=== PATIENT | female | born 1965 | race Caucasian/White ===

== ENCOUNTER 2020-08-24 15:11 | Outpatient (CLI) | payer OTHER, SELFPAY ==
--- NOTE | ~2020-08-24 | MM_ITS ---
EXAMINATION: MM screening royce BI w madisyn HISTORY: Screening TECHNIQUE: Craniocaudal and mediolateral oblique 3-D tomosynthesis images were obtained and synthetic 2-D images were generated. CAD analysis was submitted and interpreted. COMPARISON: Comparison to multiple prior studies sequentially, with oldest reviewed study dated 10/11. BREAST PARENCHYMAL COMPOSITION: There are scattered areas of fibroglandular density. FINDINGS: There is no evidence of suspicious mass, calcification, or architectural distortion to sugg est malignancy in either breast. There has been no suspicious interval change. IMPRESSION: 1. No mammographic evidence of malignancy. 2. Recommend routine screening mammography in one year. BI-RADS Category 1: Negative Reviewed, dictated and finalized at location A.
== END 2020-08-24 15:12 | disposition home or self-care (01) ==
LOC: ANHIMG 15:16
PROVIDERS: PCP Family Medicine; Visit Provider Obstetrics & Gynecology
DX: Z12.31 Encounter for screening mammogram for malignant neoplasm of breast (principal)
CPT/HCPCS: 77063; 77067

== ENCOUNTER 2021-12-03 13:39 | Outpatient (CLI) | payer OTHER, SELFPAY ==
--- NOTE | ~2021-12-03 | CT_ITS ---
EXAMINATION: CT abdomen pelvis wo con DATE: 12/03/2021 13:57 INDICATION: Right lower quadrant abdominal pain TECHNIQUE: Computed tomography (CT) of the abdomen and pelvis was performed without intravenous contr ast. Automated exposure control and iterative reconstruction technique were employed. Exam dose: 505 .41 mGy-cm total exam DLP. COMPARISON: 04/10/2012 CT abdomen pelvis FINDINGS: Minimal discoid atelectasis or scarring at the lung bases. Normal heart size. There is trace pericardial fluid. There is hepatic steatosis. There is an ill-defined approximately 2 cm area of relatively diminished attenuation of the posterior medial segment of the left hepatic lobe; differential diagnosis includes focal area of greater fat i nfiltration versus hepatic mass lesion. Further CT abdomen evaluation with IV contrast material or MR I examination is recommended. Normal splenic size. No pancreatic mass lesion, calcification or ductal dilatation. No bile duct dila tation. The gallbladder is present. No pericholecystic fluid or fat stranding. Normal morphology of the adrenal glands. Very small exophytic upper pole right renal cyst; the kidneys are otherwise unremarkable. No ureteral calculus or hydroureteronephrosis. The urinary bladder is unremarkable. Prostate calcifications. Normal caliber of the abdominal aorta. No intraperitoneal or retroperitoneal or pelvic mass lesion or adenopathy or ascites. No evidence of appendicitis. Diverticulosis of the left colon; no CT evidence of diverticulitis. Ther e is a prominent of fecal material in the transverse and right colon. No bowel obstruction, bowel wal l thickening, pneumatosis or intraperitoneal free air. Grade 2 anterolisthesis and prominent degenerative disc disease at L5-S1. No suspicious osteolytic or osteoblastic lesions are noted. IMPRESSION: Hepatic steatosis Focal approximately 2 cm ill-defined area of diminished attenuation at the posterior medial segment l eft hepatic lobe, which may represent focal increased fatty infiltration versus hepatic mass lesion. Further evaluation is recommended by CT examination with IV contrast material or MR examination Diverticulosis of the left colon; no CT evidence of diverticulitis Reviewed, dictated and finalized at Location A. Reviewed, dictated and finalized at location A. K CARRIER IMPRESSION: Hepatic steatosis Focal approximately 2 cm ill-defined area of diminished attenuation at the post erior medial segment left hepatic lobe, which may represent focal increased fat ty infiltration versus hepatic mass lesion. Further evaluation is recommended b y CT examination with IV contrast material or MR examination Diverticulosis of the left colon; no CT evidence of diverticulitis
== END 2021-12-03 13:40 | disposition home or self-care (01) ==
LOC: ANHIMG 13:43
PROVIDERS: PCP Family Medicine; Visit Provider Surgery
DX: R10.31 Right lower quadrant pain (principal); K43.2 Incisional hernia without obstruction or gangrene; K76.0 Fatty (change of) liver, not elsewhere classified; K57.30 Diverticulosis of large intestine without perforation or abscess without bleeding
CPT/HCPCS: 74176

== ENCOUNTER 2022-01-20 07:42 | Outpatient (CLI) | payer OTHER, SELFPAY ==
--- NOTE | ~2022-01-20 | MR_ITS ---
EXAMINATION: MR abdomen wo/w con DATE: 01/20/2022 08:59 INDICATION: Hepatomegaly, not elsewhere classified. TECHNIQUE: Magnetic resonance imaging (MRI) of the abdomen was performed without and with 14 mL Multi Addis intravenous contrast. Sequences included coronal T2-weighted FS FSE, coronal and axial FS FIEST A, axial T2-weighted FSE, coronal LAVA-flex, axial STIR FSE, axial DWI, axial dual-echo T1-weighted F SPGR, and axial LAVA. Postcontrast sequences included coronal LAVA-flex and a time course of axial LA VA. COMPARISON: CT abdomen and pelvis 12/03/2021, 01/29/12 FINDINGS: There is heterogeneous diffuse hepatic steatosis. In segment V of the liver, there is a 1.9 cm arteri ally hyperenhancing mass. No washout. The gallbladder, spleen, and adrenal glands are normal. Pancrea s divisum is noted. There are cysts in right kidney measuring up to 7 mm. Left kidney is normal. Ther e are no dilated loops of bowel. There are no pathologically enlarged lymph nodes. There is no free i ntraperitoneal fluid. IMPRESSION: 1. 1.9 cm arterially hyperenhancing liver mass. In the absence of known malignancy or chronic liver d isease, this finding is most likely focal nodular hyperplasia. 2. Heterogeneous hepatic steatosis. Reviewed, dictated and finalized at location A. IMPRESSION: 1. 1.9 cm arterially hyperenhancing liver mass. In the absence of known maligna ncy or chronic liver disease, this finding is most likely focal nodular hyperpl ignacia. 2. Heterogeneous hepatic steatosis.
[2022-01-20 08:33] LABS: Estimated Glomerular Filt Rate > 60
== END 2022-01-20 07:43 | disposition home or self-care (01) ==
LOC: ANHIMG 07:46
PROVIDERS: PCP Family Medicine; Visit Provider Family Medicine
DX: R16.0 Hepatomegaly, not elsewhere classified (principal)
CPT/HCPCS: 74183; A9577

== ENCOUNTER 2022-05-10 00:38 | Day surgery (SDC) | payer OTHER, SELFPAY ==
[2022-04-29 10:46] VITALS: BMI 30.9
[2022-05-10 08:13] VITALS: BP 134/73; PULSE 94; RESP 16; TEMP 36.1; O2SAT 97; BMI 29.2
[2022-05-10] MEDS: LACTATED RINGERS 1,000 ML 150 ML IV CONT (08:25)
[2022-05-10 08:26] LABS: Glucose Point of Care 131 mg/dl (65-105)
--- NOTE | 2022-05-10 08:41 | WPDANESEPPF ---
Anes - Initial Pre Proc Eval Procedure: Operation Date: 05/10/22 09:30 Proposed Procedures p Screening Colonoscopy - Chi Cho MD Date/Time: 05/10/22 08:41 Surgeon: Chi Cho MD Pre Op Diagnosis: neoplasm screening Patient Data Age: 56 Gender: F Height: 1.54 m Weight: 69.2 kg Last Vital Signs Temp 97 F L 05/10/22 08:13 Pulse 94 05/10/22 08:13 Resp 16 05/10/22 08:13 BP 134/73 05/10/22 08:13 Pulse Ox 97 05/10/22 08:13 O2 Del Method Room Air 05/10/22 08:13 Allergies Allergy/AdvReac Type Severity Reaction Status Date / Time No Known Allergies Allergy Verified 05/10/22 08:12 Home Medications Medication Instructions Recorded Confirmed Type aspirin 81 mg tablet,delayed 81 mg PO DAILY 03/20/20 05/10/22 History release (Enteric Coated Aspirin) atorvastatin 20 mg tablet 20 mg PO DAILY 03/20/20 05/10/22 History cholecalciferol (vitamin D3) 10 10 mcg PO DAILY 03/20/20 05/10/22 History mcg (400 unit) capsule cinnamon bark 500 mg capsule 500 mg PO DAILY 03/20/20 05/10/22 History (Cinnamon) lisinopril 40 mg tablet 40 mg PO DAILY 03/20/20 05/10/22 History metformin 500 mg tablet 500 mg PO DAILY 03/20/20 05/10/22 History omeprazole 40 mg capsule,delayed 40 mg PO DAILY 03/20/20 05/10/22 History release psyllium husk 0.4 gram capsule 0.4 gm PO ONCE 03/20/20 05/10/22 History (Daily Fiber) raloxifene 60 mg tablet (Evista) 60 mg PO DAILY 03/20/20 05/10/22 History levothyroxine 75 mcg tablet See Rx Instructions .Route 03/29/21 05/10/22 Rx (Euthyrox) .COMPLEX #90 tabs allopurinol 300 mg tablet 300 mg PO DAILY 11/12/21 05/10/22 History amlodipine 10 mg tablet 10 mg PO DAILY 11/12/21 05/10/22 History hyoscyamine sulfate 0.375 mg 0.375 mg PO Q12H 11/12/21 05/10/22 History tablet,extended release,12 hr albuterol sulfate 90 mcg/actuation 2 inh inhalation Q4H PRN shortness 04/11/22 05/10/22 Rx aerosol inhaler of breath or wheezing #8.5 grams codeine 10 mg-guaifenesin 100 mg/5 5 ml PO Q6H PRN cough #120 mL 04/11/22 05/10/22 Rx mL oral liquid (Virtussin AC) levothyroxine 75 mcg capsule 75 mcg PO DAILY #90 caps 05/09/22 05/10/22 Rx Laboratory Tests 05/10/22 08:20 POC Capillary Glucose 131 mg/dl H mg/dl (65-105) Patient hx anesthesia problems: none Family hx anesthesia problems: none Results Review: All pre-operative results and documents have been reviewed as part of the pre-operative evaluation. [facility] Past Medical History Medical History (Updated 05/10/22 @ 08:44 by Chi Cho MD) Abdominal hernia Adenomatous colon polyp BMI greater than 30 Colonoscopy planned Diabetes GERD (gastroesophageal reflux disease) High cholesterol Hypertension IBS (irritable bowel syndrome) Liver mass Low vitamin D level Nodular hyperplasia of liver KEYUR (obstructive sleep apnea) Recurrent incisional hernia Screen for colon cancer Thyroid disease Surgical History Surgical History H/O dilation and curettage H/O hernia repair H/O lumpectomy H/O: hysterectomy History of cryosurgery History of incisional hernia repair x2 History of lobectomy of thyroid History of total right knee replacement Hx of appendectomy Hx of breast reduction, elective Family History Family History (Updated 04/11/22 @ 11:15 by Hannah Sanchez CMA) Father Cerebrovascular accident, Onset Age: 38 Mother Breast cancer Hypertension COPD (chronic obstructive pulmonary disease) High cholesterol Tobacco abuse Sibling Acute myocardial infarction Sibling No problems noted. Other Depression Diabetes mellitus Heart disease Social History Social History (Updated 04/11/22 @ 11:18 by Hannah Sanchez CMA) Smoking status: Former smoker Second hand tobacco smoke exposure: No Alcohol intake: current Alcohol use details: RAREL
--- NOTE | 2022-05-10 08:43 | PM.HPGS ---
History of Present Illness History of Present Illness Consent: Risks, benefits, and alternatives have been discussed and questions answered. Patient agrees to proceed with procedure. Chief complaint: neoplasm screening Narrative: Kayla Manuel is a 56 year old female with colon polyps about 4-5 years ago Review of Systems Constitutional: Constitutional: Denies headache(s) and Denies weakness Eyes: Eyes: Denies blurry vision ENT: Reports Normal hearing present, Denies headache(s) and Denies neck pain Cardiovascular: Cardiovascular: Denies chest pain and Denies dyspnea Respiratory: Respiratory: Denies dyspnea Gastrointestinal: Gastrointestinal: Reports no additional gastrointestinal complaints Genitourinary: Genitourinary: Denies dysuria Musculoskeletal: Musculoskeletal: Denies neck pain Integumentary/Breasts: Skin/Breast: Denies dry skin Neurologic: Reports Normal hearing present, Denies headache(s) and Denies weakness Psychiatric: Psychiatric: Denies anxiety Endocrine: Endocrine: Denies change in body appearance Hematologic/Lymphatic: Hematologic/Lymphatic: Denies easy bleeding Allergic/Immunologic: Allergic/Immunologic: Denies urticaria PMFSH Past Medical History Medical History (Updated 05/10/22 @ 08:44 by Chi Cho MD) Abdominal hernia Adenomatous colon polyp BMI greater than 30 Colonoscopy planned Diabetes GERD (gastroesophageal reflux disease) High cholesterol Hypertension IBS (irritable bowel syndrome) Liver mass Low vitamin D level Nodular hyperplasia of liver KEYUR (obstructive sleep apnea) Recurrent incisional hernia Screen for colon cancer Thyroid disease Surgical History Surgical History H/O dilation and curettage H/O hernia repair H/O lumpectomy H/O: hysterectomy History of cryosurgery History of incisional hernia repair x2 History of lobectomy of thyroid History of total right knee replacement Hx of appendectomy Hx of breast reduction, elective Family History Family History (Updated 04/11/22 @ 11:15 by Hannah Sanchez CMA) Father Cerebrovascular accident, Onset Age: 38 Mother Breast cancer Hypertension COPD (chronic obstructive pulmonary disease) High cholesterol Tobacco abuse Sibling Acute myocardial infarction Sibling No problems noted. 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 Gender identity (if verbalized by the patient): Female Spiritual care concerns: No Meds Home Medications and Allergies Home Medications Medication Instructions Recorded Confirmed Type aspirin 81 mg tablet,delayed 81 mg PO DAILY 03/20/20 05/10/22 History release (Enteric Coated Aspirin) atorvastatin 20 mg tablet 20 mg PO DAILY 03/20/20 05/10/22 History cholecalciferol (vitamin D3) 10 10 mcg PO DAILY 03/20/20 05/10/22 History mcg (400 unit) capsule cinnamon bark 500 mg capsule 500 mg PO DAILY 03/20/20 05/10/22 History (Cinnamon) lisinopril 40 mg tablet 40 mg PO DAILY 03/20/20 05/10/22 History metformin 500 mg tablet 500 mg PO DAILY 03/20/20 05/10/22 History omeprazole 40 mg capsule,delayed 40 mg PO DAILY 03/20/20 05/10/22 History release psyllium husk 0.4 gram capsule 0.4 gm PO ONCE 03/20/20 05/10/22 History (Daily Fiber) raloxifene 60 mg tablet (Evista) 60 mg PO DAILY 03/20/20 05/10/22 History levothyroxine 75 mcg tablet See Rx Instructions .Route 03/29/21 05/10/22 Rx (Euthyrox) .COMPLEX #90 tabs allopurinol 300 mg tablet 300 mg PO DAILY 0
[2022-05-10 09:08] VITALS: BP 97/64; PULSE 83; RESP 13; O2SAT 97
[2022-05-10 09:18] VITALS: BP 115/66; PULSE 80; RESP 19; O2SAT 99
[2022-05-10 09:28] VITALS: BP 125/89; PULSE 78; RESP 14; O2SAT 98
== END 2022-05-10 09:39 | disposition home or self-care (01) ==
PROVIDERS: PCP Family Medicine; Visit Provider Internal Medicine Gastroenterology
PROC: 0DJD8ZZ Inspection of Lower Intestinal Tract, Via Natural or Artificial Opening Endoscopic (ICD-10-PCS; CPT 45378; principal; 2022-05-10 09:30)
DX: Z12.11 Encounter for screening for malignant neoplasm of colon (principal); K63.5 Polyp of colon; K57.30 Diverticulosis of large intestine without perforation or abscess without bleeding; E11.9 Type 2 diabetes mellitus without complications; K21.9 Gastro-esophageal reflux disease without esophagitis; E78.00 Pure hypercholesterolemia, unspecified; I10 Essential (primary) hypertension; K58.9 Irritable bowel syndrome, unspecified; R16.0 Hepatomegaly, not elsewhere classified; E55.9 Vitamin D deficiency, unspecified; G47.33 Obstructive sleep apnea (adult) (pediatric); Z87.891 Personal history of nicotine dependence; E03.9 Hypothyroidism, unspecified; Z79.82 Long term (current) use of aspirin; Z79.51 Long term (current) use of inhaled steroids; Z79.84 Long term (current) use of oral hypoglycemic drugs
CPT/HCPCS: 45380; 82948; 88305; J2001; J2704; J7120

== ENCOUNTER → 2022-06-06 12:37 | Outpatient (CLI) | payer OTHER, SELFPAY ==
--- NOTE | ~2022-06-06 | US_ITS ---
US thyroid INDICATION: Postprocedural hypothyroidism TECHNIQUE: Real-time sonographic images of the thyroid gland were obtained. COMPARISON: Ultrasound dated 01/23/2019 FINDINGS: The right thyroid lobe measures 4.1 x 1.6 x 1.1 cm. The left thyroid lobe is absent. In the right lobe superiorly there are 2 adjacent hypoechoic nodules including a 1 x 0.8 x 0.7 cm solid hyp oechoic, wider than tall, ill-defined mass without calcifications, TR 4. Also in the superior aspect of the right lobe there is an oval hypoechoic mass which is solid, wider than tall with ill-defined m argins measuring 7 x 6 x 6 mm, TR 4, stable Inferiorly in the right lobe there is an oval circumscrib ed solid hypoechoic mass measuring 1.2 x 1 x 1 cm was smooth margins, wider than tall and no echogeni c foci, TR 4. These are stable or diminished in size compared with prior examination. The left thyroi d bed is unremarkable. IMPRESSION: 1. Stable thyroid nodules. Thyroid ultrasound recommended in one year. Reviewed, dictated and finalized at location A.
== END ==
LOC: EXPGOSH 12:39 → EXPGOSHRAD 06-07 14:46
PROVIDERS: PCP Otolaryngology; Visit Provider Otolaryngology
DX: E89.0 Postprocedural hypothyroidism (principal); E04.2 Nontoxic multinodular goiter
CPT/HCPCS: 76536

== ENCOUNTER → 2022-06-14 10:18 | Outpatient (CLI) | payer OTHER, SELFPAY ==
--- NOTE | ~2022-06-14 | DEXA_ITS ---
Bone Density Report Name: ANANTH MACHADO Age: 56 Sex: Female Ethnicity: White Date of : 1965 Indication: osteopenia; monitoring treatment; inflammatory bowel disease; hysterectomy; postmenopausal Referring Provider: KATELIN, LILY Study: Bone densitometry was performed. Exam Date: June 14, 2022 Accession number: [id number] Bone Density: Region BMD T-score Z-score Classification AP Spine (L1-L4) 0.851 -1.8 -0.5 Osteopenia Femoral Neck (Left) 0.643 -1.9 -0.6 Osteopenia Total Hip (Left) 0.802 -1.1 -0.3 Osteopenia Femoral Neck (Right) 0.644 -1.8 -0.6 Osteopenia Total Hip (Right) 0.768 -1.4 -0.6 Osteopenia Total Hip Mean 0.785 -1.3 -0.5 Osteopenia World Health Organization criteria for BMD impression classify patients as: Normal (T-score at or above -1.0), Osteopenia (T-score between -1.0 and -2.5), or Osteoporosis (T-score at or below -2.5). 10-year Fracture Risk: FRAX not reported because: Treated for osteoporosis Previous Exams: Region Exam Age BMD T-score BMD Change BMD Change Date g/cm2 vs Baseline vs Previous AP Spine(L1-L4) 06/14/2022 56 0.851 -1.8 -0.097 0.054* 09/06/2015 50 0.797 -2.3 -0.151 -0.151 03/30/2004 38 0.948 -0.9 Total Hip(Left) 06/14/2022 56 0.802 -1.1 -0.111 -0.020 09/06/2015 50 0.822 -1.0 -0.091 -0.091 03/30/2004 38 0.913 -0.2 Total Hip(Right) 06/14/2022 56 0.768 -1.4 -0.114 -0.032* 09/06/2015 50 0.799 -1.2 -0.082 -0.082 03/30/2004 38 0.882 -0.5 *Denotes significance at 95% confidence level, LSC for AP Spine = 0.022 g/cm2, LSC for Total Hip = 0.027 g/cm2 Clinical Information Provided by Patient: Is being treated for osteoporosis Has used the following medications: Evista (i.e. raloxifene), Vitamin D, LEVOTHYROXINE, MTV Has the following medical conditions: Inflammatory bowel diseases, Hysterectomy Patient maximum height was 60.0 Menopause Age: 34 No regular weight bearing exercise Does not regularly consume dairy products Drinks caffeinated beverages Onset of menses at age 10 Number of children 2 Impression: The patient has low bone mass, based on the Left Femoral Neck T-score. The BMD for the Total Hip(Right) decreased, changing by -0.032 since the last DXA exam. Discussion: SIGNIFICANT BONE LOSS OBSERVED. Adherence to therapy (including calcium and vitamin D intake) sh
== END ==
PROVIDERS: PCP Family Medicine; Visit Provider Nurse Practitioner
DX: M85.88 Other specified disorders of bone density and structure, other site (principal); M85.852 Other specified disorders of bone density and structure, left thigh; M85.851 Other specified disorders of bone density and structure, right thigh
CPT/HCPCS: 77080

== ENCOUNTER 2022-07-29 07:34 | Outpatient (CLI) | payer OTHER, SELFPAY ==
--- NOTE | ~2022-07-29 | MM_ITS ---
EXAMINATION: MM screening royce BI w madisyn HISTORY: Screening mammogram, family history of breast cancer in her mother. TECHNIQUE: Craniocaudal and mediolateral oblique 3-D tomosynthesis images were obtained and synthetic 2-D images were generated. CAD analysis was submitted and interpreted. COMPARISON: 09/03/2020, 02/24/2019, 02/18/2017 BREAST PARENCHYMAL COMPOSITION: There are scattered areas of fibroglandular density. FINDINGS: There is no suspicious mass, calcification, or architectural distortion to suggest malignan cy in either breast. There has been no suspicious interval change. IMPRESSION: 1. No mammographic evidence of malignancy. 2. Recommend routine screening mammography in one year. BI-RADS Category 1: Negative Reviewed, dictated and finalized at location A.
== END 2022-07-29 07:35 | disposition home or self-care (01) ==
LOC: ANHIMG 07:36
PROVIDERS: PCP Family Medicine; Visit Provider Nurse Practitioner
DX: Z12.31 Encounter for screening mammogram for malignant neoplasm of breast (principal)
CPT/HCPCS: 77063; 77067

== ENCOUNTER 2022-10-02 13:30 | Outpatient (CLI) | payer OTHER, SELFPAY ==
--- NOTE | ~2022-10-02 | XR_ITS ---
EXAMINATION: XR chest 2V 10/02/2022 13:53 INDICATION: Bronchitis PROCEDURE: 2 view chest COMPARISON: 03/05/2013 FINDINGS: The lungs are clear. The cardiomediastinal silhouette is within normal limits. There are no pleural effusions. There is no pneumothorax suspected. IMPRESSION: 1: NO ACUTE CARDIOPULMONARY DISEASE. Reviewed, dictated and finalized at location B. FCASE SEWER
== END 2022-10-02 13:31 | disposition home or self-care (01) ==
PROVIDERS: PCP Family Medicine; Visit Provider Family Medicine
DX: J40 Bronchitis, not specified as acute or chronic (principal)
CPT/HCPCS: 71046

== ENCOUNTER 2022-10-07 07:32 | Emergency (ER) | payer OTHER, SELFPAY ==
[2022-10-07] VITALS (14 sets, daily range): BP systolic 138–165; BP diastolic 68–91; PULSE 65–91; RESP 14–18; TEMP 36.7; O2SAT 96–98
--- NOTE | ~2022-10-07 | CT_ITS ---
EXAMINATION: CT brain wo con DATE: 10/07/2022 12:03 INDICATION: Dizziness. TECHNIQUE: Computed tomography (CT) of the head was performed without intravenous contrast. The mA wa s adjusted according to patient size. Iterative reconstruction technique was employed. The dose-lengt h product was 605.33 mGy-cm. COMPARISON: None FINDINGS: There is no intracranial hemorrhage, acute infarction, or abnormal intracranial mass lesion . There are scattered areas of low attenuation in the cerebral white matter. The ventricles are meghana l in size. The orbits are normal. There is mild mucosal thickening in the paranasal sinuses. The mast oid air cells are normal. IMPRESSION: 1. Mild nonspecific cerebral white matter disease, which likely represents chronic small vessel ische negrita disease. Reviewed, dictated and finalized at location A. T FUEL ENGINEER IMPRESSION: 1. Mild nonspecific cerebral white matter disease, which likely represents pet food deboner alexander small vessel ischemic disease.
--- NOTE | 2022-10-07 07:54 | ECG_ITS ---
Measurements Intervals [place] Rate: 72 P: 3 CA: 148 QRS: 45 QRSD: 96 T: 84 QT: 407 QTc: 447 Interpretive Statements SINUS RHYTHM DELAYED PRECORDIAL R/S TRANSITION CONSIDER INFERIOR INFARCT, AGE INDETERMINATE BORDERLINE T WAVE ABNORMALITY- HIGH LATERAL LEADS ABNORMAL ECG NO PREVIOUS ECG AVAILABLE FOR COMPARISON Electronically Signed On 10-07-2022 10:49:30 FRONT END SPECIALIST by Mason Ybarra D.O.
[2022-10-07 08:13] LABS: Basophils Percent Auto 0.5 % (0.2-1.2); Eosinophils Absolute Auto 0.2 K/mm3 (0-0.3); Eosinophils Percent Auto 2.3 % (0-4.4); Hemoglobin 13.3 g/dL (12.0-15.0); Immature Granulocyte Absolute 0.03 K/mm3 (0.00-0.031); Immature Granulocyte Percent A 0.3 % (0-0.5); Lymphocytes Absolute Auto 2.73 K/mm3 (0.9-3.2); Lymphocytes Percent Auto 31.3 % (18.3-44.2); Mean Corpuscular HGB Conc 34.1 g/dl (32-36); Mean Corpuscular Hemoglobin 30.1 pg (26-34); Mean Corpuscular Volume 88.2 fl (80-100); Monocytes Absolute Auto 0.3 K/mm3 (0.1-0.6); Monocytes Percent Auto 3.3 % (2.6-8.5); Neutrophils Absolute Auto 5.4 K/mm3 (1.3-6.7); Neutrophils Percent Auto 62.3 % (45.5-73.1); Platelet Count Result 315 k/mm3 (150-375); Red Blood Count 4.42 M/mm3 (4.2-5.4); Red Cell Distribution Width 14.1 % (11.5-14.5); White Blood Count 8.7 K/mm3 (4.5-10.0)
[2022-10-07 08:24] LABS: Alanine Aminotransferase 33 U/L (6-35); Albumin Level 4.6 g/dL (3.5-5.1); Alkaline Phosphatase 62 U/L (38-126); Anion Gap 15 mmol/L (8-16); Aspartate Amino Transferase 31 U/L (14-36); Bilirubin,Total 0.6 mg/dL (0.2-1.3); Blood Urea Nitrogen 8 mg/dL (7-17); Calcium 8.6 mg/dL (8.4-10.2); Carbon Dioxide 26 mmol/L (22-30); Chloride 101 mmol/L (98-107); Estimated CRCL calculation 74 ml/min; Estimated Glomerular Filt Rate > 60; Glucose 124 mg/dL (65-110); Potassium 3.3 mmol/L (3.4-5.0); Sodium 142 mmol/L (137-145)
[2022-10-07 08:50] LABS: Influenza A QL RT-PCR Positive (Negative); Influenza B QL RT-PCR Negative (Negative); SARS-CoV-2 RNA PCR Negative
--- NOTE | 2022-10-07 11:38 | ED.DIZZY ---
HPI - Dizziness General Chief Complaint: Dizziness Stated Complaint: bp high, dizziness Time Seen by Provider: 10/07/22 11:27 Source: patient Mode of arrival: ambulatory Limitations: no limitations History of Present Illness HPI Narrative: This is a 57-year-old female that presents to the emergency department for dizziness ongoing since yesterday. Reports she rolled over in bed and noted that she felt like the room was spinning. Reports she has been having episodes intermittently since yesterday. No previous history of vertigo. Reports she has been having ongoing cold symptoms over the last couple of weeks. Reports cough, congestion, and sore throat. She recently finished a Z-Rohit for bronchitis. Denies fever, visual changes, vomiting, numbness, or weakness. Related Data Home Medications Medication Instructions Recorded Confirmed aspirin 81 mg tablet,delayed 81 mg PO DAILY 03/20/20 06/04/22 release (Enteric Coated Aspirin) cholecalciferol (vitamin D3) 10 10 mcg PO DAILY 03/20/20 06/04/22 mcg (400 unit) capsule cinnamon bark 500 mg capsule 500 mg PO DAILY 03/20/20 06/04/22 (Cinnamon) psyllium husk 0.4 gram capsule 0.4 gm PO ONCE 03/20/20 06/04/22 (Daily Fiber) raloxifene 60 mg tablet (Evista) 60 mg PO DAILY 03/20/20 06/04/22 allopurinol 300 mg tablet 300 mg PO DAILY 11/12/21 06/04/22 amlodipine 10 mg tablet 10 mg PO DAILY 11/12/21 06/04/22 Allergies Allergy/AdvReac Type Severity Reaction Status Date / Time No Known Allergies Allergy Verified 10/07/22 11:21 Review of Systems Review of Systems: CONSTITUTIONAL: Denies fever EYES: Denies visual changes ENT: Reports rhinorrhea, congestion, sore throat CARDIOVASCULAR: Denies chest pain RESPIRATORY: Reports cough. Denies dyspnea. GASTROINTESTINAL: Denies abdominal pain, nausea, vomiting GENITOURINARY: Denies dysuria NEUROLOGIC: Denies numbness, or weakness. All systems reviewed & are unremarkable except as noted in HPI and below PMFSH Past Medical History Medical History Abdominal hernia Adenomatous colon polyp BMI greater than 30 Colonoscopy planned Diabetes GERD (gastroesophageal reflux disease) High cholesterol Hypertension IBS (irritable bowel syndrome) Liver mass Low vitamin D level Nodular hyperplasia of liver KEYUR (obstructive sleep apnea) Recurrent incisional hernia Screen for colon cancer Thyroid disease Surgical History Surgical History H/O dilation and curettage H/O hernia repair H/O lumpectomy H/O: hysterectomy History of cryosurgery History of incisional hernia repair x2 History of lobectomy of thyroid History of total right knee replacement Hx of appendectomy Hx of breast reduction, elective Family History Family History Father Cerebrovascular accident, Onset Age: 38 Mother Breast cancer Hypertension COPD (chronic obstructive pulmonary disease) High cholesterol Tobacco abuse Sibling Acute myocardial infarction Sibling No problems noted. 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 Gender identity (if verbalized by the patient): Female Spiritual care concerns: No Exam Narrative: GENERAL: Well-appearing, well-nourished, and in no acute distress. HEAD: Normocephalic, atraumatic. EYES: PERRLA and EOMI. ENT: Nares clear, no rhinorrhea or epistaxis. Mucous membranes moist. Oropharynx without tonsillar hypertrophy exudate or other le
[2022-10-07] MEDS: SODIUM CHLORIDE 0.9% IV 1,000 ML 999 ML IV CONT (11:39)
[2022-10-07] MEDS: MECLIZINE HCL 25 MG TABLET PO (11:40)
[2022-10-07] MEDS: ONDANSETRON INJ 4 MG/2 ML VIAL IV PUSH (11:40)
[2022-10-07 11:44] LABS: Magnesium 1.5 mg/dL (1.6-2.3)
[2022-10-07] MEDS: POTASSIUM CHLORIDE 20 MEQ PACKET (FOR LIQUID) 40 MEQ PO (11:46)
[2022-10-07] MEDS: MAGNESIUM CHLORIDE 64 MG TABLET PO (12:15)
== END 2022-10-07 16:00 | disposition home or self-care (01) ==
PROVIDERS: Family Medicine; Emergency Provider Physician Assistant; PCP Family Medicine
DX: J10.1 Influenza due to other identified influenza virus with other respiratory manifestations (principal); R42 Dizziness and giddiness; Z20.822 Contact with and (suspected) exposure to COVID-19; E11.9 Type 2 diabetes mellitus without complications; I10 Essential (primary) hypertension; E78.00 Pure hypercholesterolemia, unspecified; E89.0 Postprocedural hypothyroidism; K58.9 Irritable bowel syndrome, unspecified; G47.33 Obstructive sleep apnea (adult) (pediatric); Z86.010 Personal history of colon polyps; Z79.82 Long term (current) use of aspirin; Z90.710 Acquired absence of both cervix and uterus; Z96.651 Presence of right artificial knee joint; Z87.891 Personal history of nicotine dependence; R90.82 White matter disease, unspecified; Z79.84 Long term (current) use of oral hypoglycemic drugs
CPT/HCPCS: 36415; 70450; 80053; 83735; 85025; 87636; 93005; 96361; 96374; 99284; A9270; J2405; J7030

== ENCOUNTER 2022-12-15 12:56 | Emergency (ER) | payer OTHER, SELFPAY ==
--- NOTE | ~2022-12-15 | CT_ITS ---
CT Abdomen and Pelvis with contrast. History: Abdominal pain. Spiral CT of the abdomen and pelvis was performed after the administration of intravenous contrast. 1 00 cc of Omnipaque 350 was administered intravenously without complication. Dose reduction technique was used on this scan by utilizing automated exposure control and iterative reconstruction technique. The dose-length product (DLP) was 458.49 mGy-cm. COMPARISON: 12/03/2021 Findings: Scans through the lung bases demonstrate mild atelectatic change. The liver, spleen, pancreas, gallbladder, adrenals and kidneys are within normal limits. No evidence of aortic aneurysm. No lymphadenopathy is seen. There is no evidence of bowel obstruction. Questionable mild wall thickening of small bowel loops fermin vladimir underdistention. No abscess or free air. Images through the pelvis were performed. Urinary bladder unremarkable. No pelvic mass evident. No as cites is seen. Impression: . Questionable infectious/inflammatory small bowel enteritis versus underdistention. No other significant findings. Reviewed, dictated and finalized at [facility]. EDICAL EQUIPMENT SUPPORT SPECIALIST Impression: . Questionable infectious/inflammatory small bowel enteritis versus underdisten tion. No other significant findings.
[2022-12-15 12:57] VITALS: BP 130/76; PULSE 102; RESP 18; TEMP 36.4; O2SAT 95
[2022-12-15 14:21] LABS: Basophils Percent Auto 0.4 % (0.2-1.2); Eosinophils Absolute Auto 0.1 K/mm3 (0-0.3); Hematocrit 38.4 % (37.0-47.0); Hemoglobin 12.9 g/dL (12.0-15.0); Immature Granulocyte Absolute 0.03 K/mm3 (0.00-0.031); Immature Granulocyte Percent A 0.3 % (0-0.5); Lymphocytes Percent Auto 18.8 % (18.3-44.2); Mean Corpuscular HGB Conc 33.6 g/dl (32-36); Mean Corpuscular Hemoglobin 29.8 pg (26-34); Mean Corpuscular Volume 88.7 fl (80-100); Mean Platelet Volume 8.8 fl (7.4-10.4); Monocytes Absolute Auto 0.6 K/mm3 (0.1-0.6); Neutrophils Absolute Auto 8.4 K/mm3 (1.3-6.7); Neutrophils Percent Auto 74.5 % (45.5-73.1); Platelet Count Result 344 k/mm3 (150-375); Red Blood Count 4.33 M/mm3 (4.2-5.4); Red Cell Distribution Width 13.9 % (11.5-14.5); White Blood Count 11.2 K/mm3 (4.5-10.0)
[2022-12-15 14:25] LABS: Appearance Urine Clear (Clear); Bilirubin Urine Negative (Negative); Blood Urine Trace-intact (Negative); Color Urine Yellow (Yellow); Glucose Urine UA Negative (Negative); Ketones Urine Negative (Negative); Leukocyte Esterase Ur Negative LEU/UL (Negative); Nitrate Urine Negative (Negative); Protein Urine Negative (Negative); Urobilinogen Urine 0.2 mg/dL (<2.0)
[2022-12-15 14:30] LABS: Bacteria Urine Trace /hpf; Mucus Urine Rare /lpf; RBC Urine 0-2 /hpf (0-2); Squamous Epithelial Cell Urine Occasional /hpf (Few); WBC Urine 0-3 /hpf
[2022-12-15 14:31] LABS: Add Urine Microscopic? YES
[2022-12-15 14:35] LABS: Alanine Aminotransferase 43 U/L (6-35); Albumin Level 4.7 g/dL (3.5-5.1); Alkaline Phosphatase 66 U/L (38-126); Anion Gap 7 mmol/L (8-16); Aspartate Amino Transferase 31 U/L (14-36); Bilirubin,Total 0.8 mg/dL (0.2-1.3); Blood Urea Nitrogen 9 mg/dL (7-17); Calcium 8.4 mg/dL (8.4-10.2); Carbon Dioxide 27 mmol/L (22-30); Chloride 104 mmol/L (98-107); Estimated Glomerular Filt Rate > 60; Glucose 102 mg/dL (65-110); Lipase 67 U/L (23-300); Potassium 3.4 mmol/L (3.4-5.0); Sodium 138 mmol/L (137-145)
[2022-12-15 15:34] VITALS: BP 129/75; PULSE 98; RESP 20; TEMP 36.6; O2SAT 96
--- NOTE | 2022-12-15 15:35 | ED.ABDPAIN ---
HPI - Abdominal Pain General Chief Complaint: Abdominal Pain Stated Complaint: severe abd pain Time Seen by Provider: 12/15/22 15:24 Source: patient and RN notes reviewed Mode of arrival: ambulatory Limitations: no limitations History of Present Illness HPI narrative: This is a 57 year old female with history of IBS who presents for evaluation of abdominal pain and diarrhea. She reports having diarrhea since Friday. She states her diarrhea improved until Friday. She states last night she had multiple episodes of watery, nonbloody diarrhea. She was up every 2 hours last night. She has associated nausea and today she developed lower abdominal pain. She describes pain as band going across her lower abdomen. She denies fever, chills or urinary symptoms. She took hyoscyamaine at 11 am without improvement of her pain. She reports history of IBS with diarrhea but she denies having abdominal pain. Related Data Home Medications Medication Instructions Recorded Confirmed aspirin 81 mg tablet,delayed 81 mg PO DAILY 03/20/20 06/04/22 release (Enteric Coated Aspirin) cholecalciferol (vitamin D3) 10 10 mcg PO DAILY 03/20/20 06/04/22 mcg (400 unit) capsule cinnamon bark 500 mg capsule 500 mg PO DAILY 03/20/20 06/04/22 (Cinnamon) psyllium husk 0.4 gram capsule 0.4 gm PO ONCE 03/20/20 06/04/22 (Daily Fiber) raloxifene 60 mg tablet (Evista) 60 mg PO DAILY 03/20/20 06/04/22 allopurinol 300 mg tablet 300 mg PO DAILY 11/12/21 06/04/22 amlodipine 10 mg tablet 10 mg PO DAILY 11/12/21 06/04/22 Allergies Allergy/AdvReac Type Severity Reaction Status Date / Time No Known Allergies Allergy Verified 12/15/22 15:37 Review of Systems Constitutional: Constitutional: Denies weakness Cardiovascular: Cardiovascular: Denies syncope, Denies rapid heart rate, Denies irregular heart rhythm, Denies leg edema and Denies dyspnea Respiratory: Respiratory: Denies chest congestion, Denies hemoptysis, Denies excessive phlegm production and Denies dyspnea Gastrointestinal: Gastrointestinal: Reports abdominal pain, Denies hematochezia, Reports diarrhea, Reports nausea and Denies vomiting Genitourinary: Genitourinary: Denies hematuria and Denies dysuria Musculoskeletal: Musculoskeletal: Denies joint swelling, Denies loss of height and Denies muscle weakness Neurologic: Denies syncope, Denies focal weakness and Denies weakness PMFSH Past Medical History Medical History Abdominal hernia Adenomatous colon polyp BMI greater than 30 Colonoscopy planned Diabetes GERD (gastroesophageal reflux disease) High cholesterol Hypertension IBS (irritable bowel syndrome) Liver mass Low vitamin D level Nodular hyperplasia of liver KEYUR (obstructive sleep apnea) Recurrent incisional hernia Screen for colon cancer Thyroid disease Surgical History Surgical History H/O dilation and curettage H/O hernia repair H/O lumpectomy H/O: hysterectomy History of cryosurgery History of incisional hernia repair x2 History of lobectomy of thyroid History of total right knee replacement Hx of appendectomy Hx of breast reduction, elective Family History Family History Father Cerebrovascular accident, Onset Age: 38 Mother Breast cancer Hypertension COPD (chronic obstructive pulmonary disease) High cholesterol Tobacco abuse Sibling Acute myocardial infarction Sibling No problems noted. Other Depression Diabetes mellitus Heart disease Social History Social History Smoking status: Former smoker Second hand tobacco smoke exposure: No Alcohol intake: current Alcohol use details: RARELY Substance use: never Substance use type: does not use Living arrangements: with family Occupa
[2022-12-15 15:38] VITALS: BP 129/75; PULSE 98; RESP 20; O2SAT 96
[2022-12-15] MEDS: ONDANSETRON INJ 4 MG/2 ML VIAL IV PUSH (16:00)
[2022-12-15] MEDS: MORPHINE SULFATE (*CRX) 4 MG/ML INJ IV PUSH (16:00)
[2022-12-15] MEDS: SODIUM CHLORIDE 0.9% IV 1,000 ML 999 ML IV CONT (16:01)
[2022-12-15 17:20] VITALS: BP 94/52; PULSE 85; RESP 18; O2SAT 96
[2022-12-15 17:55] VITALS: BP 94/56; PULSE 88; RESP 18; O2SAT 95
== END 2022-12-15 17:55 | disposition home or self-care (01) ==
PROVIDERS: Emergency Medicine; Emergency Provider General Practice; PCP Family Medicine
DX: R19.7 Diarrhea, unspecified (principal); E86.0 Dehydration; R10.31 Right lower quadrant pain; R10.32 Left lower quadrant pain; E78.00 Pure hypercholesterolemia, unspecified; I10 Essential (primary) hypertension; K21.9 Gastro-esophageal reflux disease without esophagitis; E89.0 Postprocedural hypothyroidism; G47.33 Obstructive sleep apnea (adult) (pediatric); Z90.710 Acquired absence of both cervix and uterus; Z96.651 Presence of right artificial knee joint; Z87.891 Personal history of nicotine dependence; Z86.010 Personal history of colon polyps; Z79.84 Long term (current) use of oral hypoglycemic drugs; Z79.82 Long term (current) use of aspirin
CPT/HCPCS: 36415; 74177; 80053; 81001; 83690; 85025; 96361; 96374; 96375; 99284; J2270; J2405; J7030; Q9967

== ENCOUNTER → 2023-10-06 16:11 | Outpatient (CLI) | payer OTHER, SELFPAY ==
--- NOTE | ~2023-10-06 | MM_ITS ---
EXAMINATION: MM screening royce BI w madisyn HISTORY: Screening mammogram TECHNIQUE: Craniocaudal and mediolateral oblique 3-D tomosynthesis images were obtained and synthetic 2-D images were generated. CAD analysis was submitted and interpreted. COMPARISON: 07/29/2022, 08/24/2020, 02/24/2019 bilateral screening mammogram examinations BREAST PARENCHYMAL COMPOSITION: There are scattered areas of fibroglandular density. FINDINGS: There is no evidence of suspicious mass, calcification, or architectural distortion to sugg est malignancy in either breast. There has been no suspicious interval change. IMPRESSION: 1. No mammographic evidence of malignancy. 2. Recommend routine screening mammography in one year. BI-RADS Category 1: Negative Reviewed, dictated and finalized at location A. PLACEMENT SPECIALIST
== END ==
PROVIDERS: PCP Family Medicine; Visit Provider Nurse Practitioner
DX: Z12.31 Encounter for screening mammogram for malignant neoplasm of breast (principal)
CPT/HCPCS: 77063; 77067

== ENCOUNTER 2024-10-08 10:39 | Outpatient (CLI) | payer OTHER, SELFPAY ==
--- NOTE | ~2024-10-08 | MM_ITS ---
EXAMINATION: MM screening royce BI w madisyn HISTORY: Screening mammogram TECHNIQUE: Craniocaudal and mediolateral oblique 3-D tomosynthesis images were obtained and synthetic 2-D images were generated. CAD analysis was submitted and interpreted. COMPARISON: 10/06/2023, 07/29/2022 bilateral screening mammogram examinations BREAST PARENCHYMAL COMPOSITION: The breasts are almost entirely fatty. FINDINGS: There is no evidence of suspicious mass, calcification, or architectural distortion to sugg est malignancy in either breast. There has been no suspicious interval change. IMPRESSION: 1. No mammographic evidence of malignancy. 2. Recommend routine screening mammography in one year. BI-RADS Category 1: Negative Reviewed, dictated and finalized at location A. SON WORKER
== END 2024-10-08 10:40 | disposition home or self-care (01) ==
LOC: MICIMG 10:40
PROVIDERS: PCP Nurse Practitioner; Visit Provider Nurse Practitioner
DX: Z12.31 Encounter for screening mammogram for malignant neoplasm of breast (principal); M85.88 Other specified disorders of bone density and structure, other site
CPT/HCPCS: 77063; 77067

== ENCOUNTER 2024-10-27 13:09 | Outpatient (CLI) | payer OTHER, SELFPAY ==
--- NOTE | ~2024-10-27 | DEXA_ITS ---
Bone Density Report Name: ANANTH MACHADO Age: 59 Sex: Female Ethnicity: White Date of : 1965 Indication: postmenopausal; screening for osteoporosis; inflammatory bowel disease; hysterectomy; Referring Provider: KATELIN, LILY Study: Bone densitometry was performed. Exam Date: October 27, 2024 Accession number: [id number] Bone Density: Region BMD T-score Z-score Classification AP Spine(L1-L4) 0.811 -2.1 -0.7 Osteopenia Femoral Neck (Left) 0.632 -2.0 -0.6 Osteopenia Total Hip (Left) 0.865 -0.6 0.4 Normal Femoral Neck (Right) 0.629 -2.0 -0.6 Osteopenia Total Hip (Right) 0.782 -1.3 -0.3 Osteopenia Total Hip Mean 0.824 -1.0 0.1 Normal World Health Organization criteria for BMD impression classify patients as: Normal (T-score at or above -1.0), Osteopenia (T-score between -1.0 and -2.5), or Osteoporosis (T-score at or below -2.5). 10-year Fracture Risk(1): Major Osteoporotic Fracture 9.1% Hip Fracture 1.1% Reported Risk Factors: [place] (), Neck BMD=0.632, BMI=32.0 (1) FRAX(R) Version 3.08. Fracture probability calculated for an untreated patient. Fracture probability may be lower if the patient has received treatment. Clinical Information Provided by Patient: Has used the following medications: Vitamin D, Calcium Has the following medical conditions: Inflammatory bowel diseases, Hysterectomy Patient maximum height was 60.0 No regular weight bearing exercise Does not regularly consume dairy products Onset of menses at age 10 Number of children 2 Impression: The patient has low bone mass, based on the Total Spine T-score. The patient has an estimated ten-year risk of hip fracture of 1.1% and an estimated ten-year risk of major fracture of 9.1%, based on the WHO FRAX algorithm. Discussion: BONE DENSITY IS LOW AT ONE OR MORE SKELETAL SITES. This patient's lowest T-score is low at one or more skeletal sites. It meets the World Health Organization's (WHO) criteria for ?low bone mass? (T-score between -1.0 and -2.5). The patient's 10-year risk of fracture as calculated by FRAX is less than the threshold where pharmacological therapy is recommended by the National Osteoporosis Foundation (NOF). However, all treatment decisions require clinical judgment and consideration of individual patient factors, including patient preferences, comorbidities, previous drug use, risk factors not captured in the FRAX model (e.g., frailty, falls, vitamin D deficiency, increased bone turnover, interval significant decline in bone density) and possible under or overestimation of fracture risk by FRAX. The patient should follow a healthful lifestyle (good nutrition with adequate calcium and vitamin D, and appropriate weight-bearing exercise). Follow-Up: Consider repeating this study in 2 to 3 years to reassess this patient's status, or sooner if there is some new clinical indication. Reported by: ROSA on 10/27/2024 1:41:00 PM. Reviewed, dictated and finalized at location [facility]
== END 2024-10-27 13:10 | disposition home or self-care (01) ==
LOC: ANHIMG 13:12
PROVIDERS: PCP Family Medicine; Visit Provider Nurse Practitioner
DX: M85.88 Other specified disorders of bone density and structure, other site (principal); M85.852 Other specified disorders of bone density and structure, left thigh; M85.851 Other specified disorders of bone density and structure, right thigh
CPT/HCPCS: 77080